=== PATIENT | female | born 1980 | race Caucasian/White ===

== ENCOUNTER → 2022-03-11 10:34 | Outpatient (BNVA) | payer MEDICAID, SELFPAY | PROVIDERS: Visit Provider Nurse Practitioner | DX: M54.2 Cervicalgia (principal); R20.0 Anesthesia of skin; R20.2 Paresthesia of skin; M25.512 Pain in left shoulder; Z87.39 Personal history of other diseases of the musculoskeletal system and connective tissue; M47.892 Other spondylosis, cervical region | CPT/HCPCS: 72040 ==

== ENCOUNTER → 2022-07-08 11:03 | Outpatient (BNVA) | payer MEDICAID, SELFPAY | PROVIDERS: PCP Nurse Practitioner Family; Visit Provider Nurse Practitioner | DX: E55.9 Vitamin D deficiency, unspecified (principal); I49.8 Other specified cardiac arrhythmias | CPT/HCPCS: 80053; 82306; 82607; 84443 ==

== ENCOUNTER → 2022-10-21 11:12 | Outpatient (BNVA) | payer MEDICAID, SELFPAY | PROVIDERS: PCP Nurse Practitioner Family; Visit Provider Nurse Practitioner | DX: Z13.6 Encounter for screening for cardiovascular disorders (principal); F41.9 Anxiety disorder, unspecified | CPT/HCPCS: 80061; 86800 ==

== ENCOUNTER 2023-03-05 12:49 | Outpatient (CLI) | payer MEDICAID, SELFPAY ==
--- NOTE | 2023-03-05 13:11 | MM_ITS ---
WS: [id number] BILATERAL 3D TOMOSYNTHESIS DIGITAL SCREENING MAMMOGRAPHY WITH CAD CLINICAL INFORMATION: SCREENING HISTORY: Screening mammogram. No current complaints. COMPARISON: Baseline TECHNIQUE: Bilateral CC and MLO views. FINDINGS: The breasts are composed of heterogeneous fibroglandular density tissue, which can limit the detectio n of small underlying mass lesions. No suspicious mass, asymmetry, calcifications, or architectural d istortion. No evidence of malignancy. A few tiny incidental punctate calcifications. IMPRESSION: MM/[place] [id number] BI-RADS: 2-Benign FOLLOW UP: 1 Year Follow-up Recommend return to annual screening mammography..
== END 2023-03-05 12:50 | disposition home or self-care (01) ==
PROVIDERS: PCP Nurse Practitioner Family; Visit Provider Physician Assistant
DX: Z12.31 Encounter for screening mammogram for malignant neoplasm of breast (principal)
CPT/HCPCS: 77063; 77067

== ENCOUNTER → 2023-05-07 08:46 | Outpatient (BNVA) | payer MEDICAID, SELFPAY | PROVIDERS: PCP Nurse Practitioner Family; Visit Provider Nurse Practitioner Family | DX: N39.0 Urinary tract infection, site not specified (principal) | CPT/HCPCS: 81000 ==

== ENCOUNTER → 2023-07-12 15:24 | Outpatient (BNVA) | payer MEDICAID, SELFPAY | PROVIDERS: PCP Nurse Practitioner Family; Visit Provider Internal Medicine | DX: O24.419 Gestational diabetes mellitus in pregnancy, unspecified control (principal) | CPT/HCPCS: 83036; 84403 ==

== ENCOUNTER 2024-03-07 06:00 | Outpatient (RCR) | payer SELFPAY | END 2024-04-06 23:59 | disposition home or self-care (01) | LOC: APT 06:00 | PROVIDERS: PCP Physician Assistant; Visit Provider Physician Assistant | DX: M54.12 Radiculopathy, cervical region (principal) | CPT/HCPCS: 97110; 97112; 97530 ==

== ENCOUNTER 2024-03-14 22:50 | Emergency (ER) | payer MEDICAID, SELFPAY ==
[2024-03-14 22:55] VITALS: BP 132/82; PULSE 60; RESP 16; TEMP 36.7; O2SAT 100; BMI 29.2
--- NOTE | 2024-03-14 22:58 | CTR_ITS ---
PROCEDURE INFORMATION: Exam: CT Abdomen And Pelvis Without Contrast Exam date and time: 03/14/2024 11:48 PM Age: 44 years old Clinical indication: Abdominal pain; Flank; Left; Prior surgery; Surgery date: 6+ months; Surgery type: 3 csections; Additional info: Left flank pain/hx of stones TECHNIQUE: Imaging protocol: Computed tomography of the abdomen and pelvis without contrast. Radiation optimization: All CT scans at this facility use at least one of these dose optimization techniques: automated exposure control; mA and/or kV adjustment per patient size (includes targeted exams where dose is matched to clinical indication); or iterative reconstruction. COMPARISON: US transvaginal [id number] 10/21/2023 12:06 PM RADIATION DOSE METRICS: Total DLP (mGy-cm): 615.62 FINDINGS: Liver: Normal. No mass. Gallbladder and biliary ducts: Normal. No calcified stones. No ductal dilation. Pancreas: Normal. No ductal dilation. Spleen: Normal. No splenomegaly. Adrenal glands: Normal. No mass. Kidneys and ureters: There is a 4 mm nonobstructing stone in the interpolar region of the left kidney. Three 2 mm nonobstructing stones in the right kidney. There is a 4 mm obstructing stone in the distal left ureter with mild left hydroureteronephrosis. Stomach and bowel: Unremarkable. No obstruction. No mucosal thickening. Appendix: No evidence of appendicitis. Intraperitoneal space: Unremarkable. No free air. No significant fluid collection. Vasculature: Pelvic phleboliths. Lymph nodes: Unremarkable. No enlarged lymph nodes. Urinary bladder: Unremarkable as visualized. Reproductive: Unremarkable as visualized. Bones/joints: Unremarkable. No acute fracture. Soft tissues: Fat containing umbilical hernia. CT/CT kidney stone [id number] IMPRESSION: 4 mm obstructing stone in the distal left ureter with mild left hydroureteronephrosis.
--- NOTE | 2024-03-14 23:22 | W.ED.ABDPA2 ---
HPI - Abdominal Pain General: Chief Complaint: Abdominal Pain Stated Complaint: abd pain Time Seen by Provider: 03/14/24 22:58 Source: patient Mode of arrival: ambulatory Limitations: no limitations History of Present Illness: Patient is a 44-year-old female complaining of left flank pain and left lower abdominal pain beginning at around noon today. Reports history of kidney stones and states that this feels similar. She is noting hesitancy with urination as well as nausea. Also stating that the pain is felt in her left lower back. She has only been taking ibuprofen for pain and states this is not helping. She does state that her pain is only a 5/10 at this time it is worsened with any movement. She denies any hematuria, vomiting, diarrhea or constipation, or other symptoms at this time. She is currently requesting something for pain. MD elicited complaint: abdominal pain and flank pain Pertinent past history: kidney stones Onset (ago): hour(s) Pain Consistency: constant Location: LLQ and L flank Radiation: back Associated Symptoms: Reports nausea; Denies bloating, change in stool character, chills, constipation, diarrhea, dysuria, fever(s), hematochezia, hematuria and vomiting Treatments prior to arrival: NSAIDs Related Data Home Medications Medication Instructions Recorded Confirmed alprazolam 0.5 mg tablet (Xanax) 0.5 mg PO DAILY PRN anxiety 11/27/21 08/23/23 Previous Rx's Medication Instructions Recorded sulfamethoxazole 800 1 tab PO DAILY PRN after 11/27/21 mg-trimethoprim 160 mg tablet intercourse #30 tabs propranolol 60 mg capsule,24 60 mg PO DAILY #30 caps 07/08/22 hr,extended release venlafaxine 75 mg capsule,extended 75 mg PO DAILY #30 caps 07/08/22 release 24 hr metformin 500 mg tablet,extended 1,000 mg (2 x 500 mg) PO BID #180 04/14/23 release 24 hr tabs eflornithine 13.9 % topical cream 1 applic topical BID #45 grams 04/21/23 (Vaniqa) fluconazole 150 mg tablet 150 mg PO Q3D 2 doses #2 tabs 05/07/23 hydrocodone 7.5 mg-acetaminophen 1 tab PO Q8H PRN pain #10 tabs 03/15/24 325 mg tablet Allergies Allergy/AdvReac Type Severity Reaction Status Date / Time No Known Allergies Allergy Verified 08/23/23 09:12 Review of Systems General: Reports: 10 or more systems reviewed and unremarkable except in HPI and below Const: Denies: fever(s), chills, change in appetite, change in weight or diaphoresis ENMT: Denies: throat pain or hoarseness Card: Denies: chest pain, palpitations or lightheadedness Resp: Denies: dyspnea, productive cough or wheezing GI: Reports: abdominal pain and nausea; Denies: vomiting, diarrhea, constipation, bloating, change in stool character or hematochezia : Reports: flank pain, difficulty voiding and urinary hesitancy; Denies: dysuria, urinary frequency, urinary urgency or hematuria Musc: Reports: back pain; Denies: neck pain Skin/Breast: Denies: rash or new lesions Neuro: Denies: headache(s) or dizziness PFSH ED PFSH: Medical History Gestational diabetes mellitus with all three children. Two diet and one insulin Recurrent UTI Anxiety POTS (postural orthostatic tachycardia syndrome) Surgical History Hx of laparoscopy For pelvic view History of ganglion cyst Hx of dilation and curettage Delivery with history of x3 Family History Mother Diabetes Lung disease Grandfather Diabetes Grandmother Diabetes Denies family history of CAD (coronary artery disease) Hyperlipidemia Chronic kidney disease (CKD) Suicide Cancer Hypertension Stroke Social History Smoking and tobacco/nicotine status: never used tobacco/nicotine Alcohol intake: never Substance/Drug Use: never Adopted: No Lives independently: Yes Household members: family Housing: Manufactured/Mobile home Marital status: Single Number of children: 3 Highest education level completed: Some College, No Degree service: No Current occupational status: employed Current occupation: caregiver Sexually active: Yes Do you think of yourself as: Straight/Heterosexual Current gender identity: Female Physical Exam Const: COMMON NORMALS: no acute distress, average body habitus, patient oriented x3, no limitations, healthy appearing, alert and well nourished GENERAL APPEARANCE: cooperative and comfortable ORIENTATION/CONSCIOUSNESS: Yes awake HENMT: COMMON NORMALS: normocephalic, atraumatic, hearing grossly normal bilaterally, external ears normal, Normal external nose present, Normal nasal mucous membranes and turbinates present and moist oral mucous membranes HEAD & SCALP: normocephalic and atraumatic NOSE: Normal external nose present and Normal nasal mucous membranes and turbinates present EXTERNAL EAR: Yes external ears normal Eye: COMMON NORMALS: Equal, round and reactive pupils present, EOMs intact bilaterally, conjunctivae normal and normal visual johnson by confrontation CONJUNCTIVA: Yes conjunctivae normal PUPIL: Yes Equal, round and reactive pupils present Neck/C-Spine: COMMON NORMALS: full ROM, supple, no meningeal signs and no JVD Resp: COMMON NORMALS: normal respiratory effort, No retractions, No use of accessory muscles and clear to auscultation bilaterally AUSCULTATION: clear to auscultation bilaterally, no crackles, no rales, no rhonchi and no wheezes Cardio: COMMON NORMALS: no JVD, regular rate, regular rhythm, S1 normal heart sound present, S2 normal heart sound present, No gallops present (Cardio), No clicks present (Cardio), No murmurs present (Cardio), No rub (Cardio) and Peripheral pulses 2+ throughout RATE: regular rate RHYTHM: regular rhythm HEART SOUNDS: S1 normal heart sound present and S2 normal heart sound present PERIPHERAL PULSES: Peripheral pulses 2+ throughout GI: COMMON NORMALS: Normal to inspection, nondistended, normoactive bowel sounds present, Soft to palpation, No hepatosplenomegaly present and no masses AUSCULTATION: Yes normoactive bowel sounds PALPATION: Yes Soft to palpation, Yes Tenderness to palpation present (GI) (Suprapubic tenderness to deep palpation), No Guarding due to palpation present (GI), No Rigid due to palpation and Yes No hepatosplenomegaly present RECTAL EXAM: deferred : COMMON NORMALS: Yes no CVA tenderness BLADDER/KIDNEY EXAM: Yes no CVA tenderness Back/Pelvis: COMMON NORMALS: no CVA tenderness Extremity: COMMON NORMALS: normal to inspection and full ROM Neuro: COMMON NORMALS: patient oriented x3, moves all extremities, no focal motor deficits and no sensory deficits noted SENSORIUM/ORIENTATION: Yes alert MENINGEAL SIGNS: Yes no meningeal signs Psych: COMMON NORMALS: mental status grossly normal, cooperative and speech normal SPEECH: Yes normal speech Skin: COMMON NORMALS: no rashes or lesions noted GENERAL SKIN EXAM: no rashes or lesions noted Course Vital Signs: Vital signs: Vital Signs Temperature 98.0 F 03/14/24 22:55 Pulse Rate 60 03/14/24 22:55 Respiratory Rate 16 03/14/24 22:55 Blood Pressure 132/82 03/14/24 22:55 Pulse Oximetry 100 03/14/24 22:55 Oxygen Delivery Me thod Room Air 03/14/24 22:55 MDM - Abdominal Pain Medical Decision Making This patient arrived with left lower quadrant pain as well as left flank pain, reported history of kidney stones. Her vitals were normal on arrival, no significant discomfort on physical exam. IV was established she was given Zofran and Toradol, upon recheck states she felt better. A CT did show a 4 mm obstructing stone with only mild amount of hydroureteronephrosis, this will likely pass on its own and due to patient's clinical status and improvement of pain, no need for urological evaluation at this time. Lab work was unremarkable, urinalysis did not reveal signs of an infection. Will be discharged home with pain meds, was given 1 dose of Flomax here in the emergency department. Return precautions were given. Case discussed with Dr. Matthews. Lab Data 03/14/24 23:40 03/15/24 00:29 Labs/Radiology: Radiology Impressions Abdomen/Pelvis CT 03/14/24 22:58 IMPRESSION: 4 mm obstructing stone in the distal left ureter with mild left hydroureteronephrosis. Laboratory Results WBC 10.36 10^3/uL (3.29-11.43) 03/14/24 23:40 RBC 4.44 10^6/uL (3.85-5.65) 03/14/24 23:40 Hgb 13.80 g/dL (11.27-16.99) 03/14/24 23:40 Hct 42.0 % (36-47) 03/14/24 23:40 MCV 94.6 fl (85-98) 03/14/24 23:40 MCH 31.1 pg (27-33) 03/14/24 23:40 MCHC 32.9 g/dL (30-55) 03/14/24 23:40 RDW 11.9 % (12.1-15.1) L 03/14/24 23:40 Plt Count 232 10^3/cmm (157-399) 03/14/24 23:40 MPV 10.7 fL (7.4-10.4) H 03/14/24 23:40 Neut % (Auto) 56.6 % 03/14/24 23:40 Lymph % (Auto) 36.2 % 03/14/24 23:40 [place] % (Auto) 6.0 % 03/14/24 23:40 Eos % (Auto) 0.5 % 03/14/24 23:40 Baso % (Auto) 0.5 % 03/14/24 23:40 Neut # (Auto) 5.87 10^3/uL (1.8-7.7) 03/14/24 23:40 Lymph # (Auto) 3.8 10^3/uL (0.8-4.8) 03/14/24 23:40 [place] # (Auto) 0.6 10^3/uL (0.2-0.9) 03/14/24 23:40 Eos # (Auto) 0.1 10^3/uL (0.0-0.8) 03/14/24 23:40 Baso # (Auto) 0.1 10^3/uL (0.0-0.1) 03/14/24 23:40 Nucleated RBC % (auto) 0 % 03/14/24 23:40 Nucleated RBCs # 0.0 /100WBC 03/14/24 23:40 Sodium Cancelled 03/14/24 23:40 Potassium Cancelled 03/14/24 23:40 Chloride Cancelled 03/14/24 23:40 Carbon Dioxide Cancelled 03/14/24 23:40 Anion Gap Cancelled 03/14/24 23:40 BUN Cancelled 03/14/24 23:40 Creatinine Cancelled 03/14/24 23:40 GFR Calculation Cancelled 03/14/24 23:40 Glucose Cancelled 03/14/24 23:40 Calculated Osmolality Cancelled 03/14/24 23:40 Calcium Cancelled 03/14/24 23:40 Total Bilirubin Cancelled 03/14/24 23:40 AST Cancelled 03/14/24 23:40 ALT Cancelled 03/14/24 23:40 Alkaline Phosphatase Cancelled 03/14/24 23:40 Total Protein Cancelled 03/14/24 23:40 Albumin Cancelled 03/14/24 23:40 Globulin Cancelled 03/14/24 23:40 Lipase Cancelled 03/14/24 23:40 HCG, Qual Cancelled 03/14/24 23:40 Urine Color Dark yellow (Yellow) A 03/14/24 23:46 Urine Appearance Clear (CLEAR) 03/14/24 23:46 Urine pH 6.0 (5-7) 03/14/24 23:46 Ur Specific [place] 1.006 (1.005-1.030) 03/14/24 23:46 Urine Protein Negative (Negative) 03/14/24 23:46 Urine Glucose (UA) Negative (Normal) 03/14/24 23:46 Urine Ketones Negative (Negative) 03/14/24 23:46 Urine Blood Negative (Negative) 03/14/24 23:46 Urine Nitrate Positive (Negative) A 03/14/24 23:46 Urine Bilirubin Negative (Negative) 03/14/24 23:46 Urine Urobilinogen 1.0 mg/dL (Negative) 03/14/24 23:46 Ur Leukocyte Esterase Negative (Negative) 03/14/24 23:46 Urine RBC 0-2 /hpf (0-2) 03/14/24 23:46 Urine WBC 0-5 /hpf (0-5) 03/14/24 23:46 Ur Squamous Epith Cells 0-5 /hpf (0-5) 03/14/24 23:46 Amorphous Sediment Not Reportable 03/14/24 23:46 Urine Bacteria Trace /hpf (NONE) 03/14/24 23:46 Hyaline Casts 0-4 /lpf H 03/14/24 23:46 All radiology interpretation(s) finalized by discharge Discharge Plan Discharge Patient Disposition: Home Clinical Impression: Ureterolithiasis Condition: Stable Prescriptions: New hydrocodone-acetaminophen 7.5-325 mg tablet 1 tab PO Q8H PRN (Reason: pain) Qty: 10 0RF No Action alprazolam [Xanax] 0.5 mg tablet 0.5 mg PO DAILY PRN (Reason: anxiety) sulfamethoxazole-trimethoprim 800-160 mg tablet 1 tab PO DAILY PRN (Reason: after intercourse) Qty: 30 5RF propranolol 60 mg capsule,extended release 24 hr 60 mg PO DAILY Qty: 30 5RF venlafaxine 75 mg capsule,extended release 24hr 75 mg PO DAILY Qty: 30 5RF metformin 500 mg tablet extended release 24 hr 1,000 mg PO BID Qty: 180 0RF fluconazole 150 mg tablet 150 mg PO Q3D Qty: 2 0RF Rx Instructions: may repeat second dose 72 hrs after first dose if symptoms persist Vaniqa 13.9 % cream 1 applic topical BID Qty: 45 0RF Rx Instructions: space doses >= 8 hrs apart and at least 5 min after hair removal; avoid water for 4hr after any dose Discharge Orders: Discharge ED (Routine); Ordered 03/15/24 Ordered By: Reuben Leung Referrals: Mary Soni PA [Primary Care Provider] - Discharge Diet: As Directed Discharge Activity: Increase activity as tolerated Patient Instructions: Ureteral Stones (ED) Activity Restrictions/Additional Instructions: Pain medications as prescribed. Please increase your fluid intake. Follow-up with primary care provider as needed. Return with any new or concerning symptoms. Coding Level of Care Code ED Financial Management Consultant for Phyllis Garrido
[2024-03-14 23:55] LABS: Basophils # 0.1 10^3/uL (0.0-0.1); Basophils % 0.5 %; Eosinophils # 0.1 10^3/uL (0.0-0.8); Eosinophils % 0.5 %; Lymphocytes # 3.8 10^3/uL (0.8-4.8); Lymphocytes % 36.2 %; Mean Corpuscular HGB Conc 32.9 g/dL (30-55); Mean Corpuscular Hemoglobin 31.1 pg (27-33); Mean Corpuscular Volume 94.6 fl (85-98); Mean Platelet Volume 10.7 fL (7.4-10.4); Monocytes # 0.6 10^3/uL (0.2-0.9); Neutrophils # 5.87 10^3/uL (1.8-7.7); Neutrophils % 56.6 %; Nucleated Red Blood Cells % 0 %; Platelet Count 232 10^3/cmm (157-399); Red Blood Count 4.44 10^6/uL (3.85-5.65); Red Cell Distribution Width 11.9 % (12.1-15.1); White Blood Count 10.36 10^3/uL (3.29-11.43)
[2024-03-14 23:57] VITALS: BP 112/73; PULSE 61; O2SAT 94
[2024-03-14 23:58] LABS: Bilirubin Urine Negative (Negative); Blood Urine Negative (Negative); Glucose Urine UA Negative (Normal); Ketones Urine Negative (Negative); Leukocyte Esterase Urine Negative (Negative); Nitrate Urine Positive (Negative); Protein Urine Negative (Negative); Specific Gravity, Urine 1.006 (1.005-1.030); Urine Appearance Clear (CLEAR); Urine Color Dark Yellow (Yellow)
[2024-03-15 00:03] LABS: Add Urine Microscopic? YES; Bacteria Urine Trace /hpf; Hyaline Casts Urine 0-4 /lpf; RBC Urine 0-2 /hpf (0-2); Squamous Epithelial Cell Urine 0-5 /hpf (0-5); WBC Urine 0-5 /hpf (0-5)
[2024-03-15] MEDS: ondansetron 2 mg/ML SDV 2 mL 4 MG IVP (00:07)
[2024-03-15] MEDS: ketorolac 60 mg/2 mL INJ 30 MG IVP (00:09)
[2024-03-15 00:27] VITALS: BP 109/66; PULSE 61; O2SAT 94
[2024-03-15 00:59] LABS: Alanine Aminotransferase 12 U/L (0-33); Albumin Level 3.9 g/dL (3.5-5.2); Alkaline Phosphatase 70 U/L (35-105); Anion Gap 14.1 (5-19); Aspartate Amino Transferase 17 U/L (0-32); Blood Urea Nitrogen 6 mg/dL (6-20); Carbon Dioxide 25 mmol/L (22-29); Chloride 104 mmol/L (98-107); Creatinine Clr Calc Pharmacy 104.1494; Globulin 3.2 g/dL (1.3-4.6); Glomerular Filtration Rate 91.3 mL/min (90-130); Glucose 103 mg/dL (65-115); Lipase 17 U/L (13-60); Osmolality Calculated 286 mOsm/kg (285-295); Potassium 4.1 mmol/L (3.5-5.1); Sodium 139 mmol/L (136-145); Total Bilirubin 0.3 mg/dL (0.15-1.2); Total Protein 7.1 g/dL (6.6-8.7)
[2024-03-15 01:00] VITALS: BP 107/85; PULSE 67; O2SAT 100
[2024-03-15 01:02] LABS: HCG, Serum Qual Negative (Negative)
[2024-03-15 01:30] VITALS: BP 115/77; PULSE 57; O2SAT 99
[2024-03-15] MEDS: tamsulosin 0.4 mg Capsule PO (01:43)
[2024-03-15 02:03] VITALS: BP 116/69; PULSE 60; O2SAT 91
== END 2024-03-15 01:50 | disposition home or self-care (01) ==
PROVIDERS: Emergency Provider Physician Assistant; PCP Physician Assistant
DX: N13.2 Hydronephrosis with renal and ureteral calculous obstruction (principal); Z87.440 Personal history of urinary (tract) infections; Z87.442 Personal history of urinary calculi
CPT/HCPCS: 36415; 74176; 80053; 81001; 83690; 84703; 85025; 96374; 96375; 99285; J1885; J2405

== ENCOUNTER 2024-03-23 15:18 | Outpatient (CLI) | payer SELFPAY ==
--- NOTE | 2024-03-23 15:22 | MR_ITS ---
WS: [id number] MRI CERVICAL SPINE NONCONTRAST TECHNIQUE: Sagittal T1, T2 and STIR imaging. Axial T2, gradient, and fiesta imaging. CLINICAL INFORMATION: Cervical Radiculopathy COMPARISON: None. FINDINGS: Straightening of the normal cervical lordosis. Mild spondylitic changes. Disc space narrowing worse a t C5-C6 and C6-C7. No high-grade central canal stenosis. C2-C3: Normal. C3-C4: Mild disc bulging with osteophytic ridging. Mild bilateral foraminal narrowing. Mild facet art hropathy. C4-C5: Mild disc bulge with osteophytic ridging. Slight effacement of ventral thecal sac. Moderate fa cet arthropathy. Mild bilateral foraminal narrowing. C5-C6: RIGHT paracentral disc osteophyte protrusion with indentation of the RIGHT ventral cervical co rd. Mild to moderate central canal stenosis. Mild facet arthropathy. Moderate RIGHT greater than LEFT foraminal narrowing. C6-C7: LEFT paracentral disc protrusion with indentation LEFT ventral cervical cord. Mild central can al stenosis. Moderate LEFT bony foraminal narrowing. RIGHT foramen is patent. C7-T1: Mild LEFT foraminal narrowing. Spinal canal and RIGHT foramen are patent. Visualized brain stem structures: Normal. Prevertebral soft tissues: Normal. Tiny RIGHT thyroid nodule likely cyst measuring 2.3 mm. MR/MR cervical spin wo con* [id number] IMPRESSION: 1. Mild central canal stenosis C4-C5. Mild to moderate central canal stenosis C5-C6 and C6-C7 with slight indentation on the cervical cord. 2. LEFT paracentral protrusion C6-C7 with indentation on the LEFT ventral cerv ical cord. Moderate LEFT foraminal narrowing at this level. 3. Otherwise moderate foraminal narrowing worse at bilateral C5-6 worse on the RIGHT
== END 2024-03-23 15:19 | disposition home or self-care (01) ==
LOC: RAD 15:19
PROVIDERS: PCP Physician Assistant; Visit Provider Physician Assistant
DX: M54.12 Radiculopathy, cervical region (principal); M47.892 Other spondylosis, cervical region; M50.20 Other cervical disc displacement, unspecified cervical region; M99.61 Osseous and subluxation stenosis of intervertebral foramina of cervical region
CPT/HCPCS: 72141

== ENCOUNTER 2024-04-07 06:00 | Outpatient (RCR) | payer SELFPAY | END 2024-05-06 23:59 | disposition home or self-care (01) | LOC: APT 06:00 | PROVIDERS: PCP Physician Assistant; Visit Provider Physician Assistant | DX: M54.12 Radiculopathy, cervical region (principal) | CPT/HCPCS: 97110; 97112; 97530 ==

== ENCOUNTER 2024-05-07 06:00 | Outpatient (RCR) | payer SELFPAY | END 2024-06-06 23:59 | disposition home or self-care (01) | LOC: APT 06:00 | PROVIDERS: PCP Physician Assistant; Visit Provider Physician Assistant | DX: M54.12 Radiculopathy, cervical region (principal) | CPT/HCPCS: 97110; 97112; 97530 ==

== ENCOUNTER 2024-06-07 06:30 | Outpatient (RCR) | payer SELFPAY | END 2024-07-07 23:59 | disposition home or self-care (01) | LOC: APT 06:30 | PROVIDERS: PCP Physician Assistant; Visit Provider Physician Assistant | DX: M54.12 Radiculopathy, cervical region (principal) | CPT/HCPCS: 97110; 97530 ==

== ENCOUNTER → 2024-08-22 13:52 | Outpatient (BNVA) | payer OTHER, SELFPAY | PROVIDERS: PCP Physician Assistant; Visit Provider Orthopaedic Surgery | DX: M54.2 Cervicalgia (principal) | CPT/HCPCS: 72050 ==

== ENCOUNTER → 2024-10-26 14:09 | Outpatient (BNVA) | payer OTHER, SELFPAY | PROVIDERS: PCP Physician Assistant; Visit Provider Orthopaedic Surgery | DX: M54.9 Dorsalgia, unspecified (principal) | CPT/HCPCS: 36415; 80053; 81001; 85025 ==